=== PATIENT | female | born 1950 | race Caucasian/White ===

== ENCOUNTER 2022-01-23 15:53 | Observation (INO) ==
[2022-01-23 17:02] LABS: Bilirubin,Urine Small (Negative); Blood,Urine Small (Negative); Clarity,Urine Clear (Clear); Color,Urine Yellow (Yellow); Glucose,Urine (UA) Normal (Normal); Hyaline Casts,Urine Few per lpf (None Seen); Ketones,Urine 150 mg/dL (Negative); Leukocyte Esterase,Urine Negative (Negative); Mucus,Urine Few per lpf (None-Few); Nitrite,Urine Negative (Negative); Protein,Urine 50 mg/dL (Neg-Trace); RBC,Urine 0-3 per hpf (0-3); Specific Gravity,Urine 1.029 (1.010-1.025); Squamous Epithelial Cell,Urine Few per hpf (None-Few); WBC,Urine 0-3 per hpf (0-3)
[2022-01-23 17:15] LABS: Basophils # 0.1 K/mcL (0.0-0.2); Basophils % 0.4 %; Eosinophils % 0.2 %; Hematocrit 43.1 % (35.3-44.9); Hemoglobin 14.9 g/dL (11.5-15.4); Immature Granulocytes % 0.4 % (0-4); Lymphocytes # 1.7 K/mcL (0.6-4.6); Lymphocytes % 14.6 %; Mean Corpuscular HGB Conc 34.6 g/dL (31.6-35.5); Mean Corpuscular Hemoglobin 31.5 pg (28.0-33.3); Mean Corpuscular Volume 91.1 fL (83.0-100.0); Mean Platelet Volume 8.4 fL (9.4-12.4); Monocytes # 0.7 K/mcL (0.0-1.3); Monocytes % 6.3 %; Platelet Count 255 K/mcL (140-400); Red Blood Count 4.73 M/mcL (3.82-4.97); Red Cell Distribution Width 12.5 % (11.5-14.5); Segmented Neutrophils % 78.1 %; White Blood Count 11.5 K/mcL (4.3-11.1)
[2022-01-23 17:25] LABS: Albumin 4.7 g/dL (3.5-5.7); Albumin/Globulin Ratio 1.8 (1.1-2.2); Bilirubin,Direct 0.2 mg/dL (0.0-0.2); Bilirubin,Indirect 0.6 mg/dL (0.0-1.0); Bilirubin,Total 0.8 mg/dL (0.3-1.0); Calcium 10.4 mg/dL (8.6-10.3); Globulin 2.6 g/dL (2.4-3.5); Potassium 3.8 mEq/L (3.5-5.1); Total Protein 7.3 g/dL (6.4-8.9)
[2022-01-23] MEDS ORDERED: Isovue-370 500 ML BOTTLE IVP ONE (19:24)
[2022-01-23] MEDS ORDERED: 0.9 % Sodium Chloride 1,000 ML IV ONE (19:24)
[2022-01-23] MEDS ORDERED: *HR* FentaNYL (PF) 100 MCG/2 ML VIAL IVP ONE (19:24)
[2022-01-23] MEDS ORDERED: Ondansetron 4 MG/2 ML VIAL IVP ONE (19:24)
[2022-01-23 20:49] LABS: VBG HCO3 17 mEq/L (21-27); VBG PCO2 28 mmHg (41-51); VBG PO2 74 mmHg (25-50)
[2022-01-24] MEDS ORDERED: Acetaminophen 325 MG TABLET PO PRN (00:21)
[2022-01-24] MEDS ORDERED: Ondansetron 4 MG/2 ML VIAL IVP PRN (00:21)
[2022-01-24] MEDS ORDERED: Naloxone 0.4 MG/ML INJ IVP PRN (00:21)
[2022-01-24] MEDS ORDERED: Melatonin 3 MG TABLET PO PRN (00:21)
[2022-01-24] MEDS ORDERED: D5% in Water 1,000 ML IVC PRN (00:26)
[2022-01-24] MEDS ORDERED: Dextrose 4 GM Chewable Tablets PO PRN ×2 (00:26)
[2022-01-24] MEDS ORDERED: *HR* Dextrose 50 % in Water (Syg) 50 ML SYRINGE IVP PRN (00:26)
[2022-01-24] MEDS ORDERED: 0.9 % Sodium Chloride 1,000 ML IVC SCH (00:30)
[2022-01-24] MEDS: Piperacillin/Tazobactam 3.375 GM in 0.9 % Sodium Chloride Mini Bag 100 ML IVP ONE ×2 (01:08→01:19)
[2022-01-24 01:21] LABS: Basophils % 0.3 %; Eosinophils % 0.1 %; Hematocrit 36.4 % (35.3-44.9); Immature Granulocytes % 0.4 % (0-4); Lymphocytes # 2.1 K/mcL (0.6-4.6); Lymphocytes % 17.8 %; Mean Corpuscular HGB Conc 34.6 g/dL (31.6-35.5); Mean Corpuscular Hemoglobin 31.6 pg (28.0-33.3); Mean Corpuscular Volume 91.2 fL (83.0-100.0); Mean Platelet Volume 8.5 fL (9.4-12.4); Monocytes # 0.7 K/mcL (0.0-1.3); Monocytes % 6.4 %; Neutrophils # 8.7 K/mcL (1.6-8.9); Platelet Count 217 K/mcL (140-400); Red Blood Count 3.99 M/mcL (3.82-4.97); Red Cell Distribution Width 12.5 % (11.5-14.5); White Blood Count 11.6 K/mcL (4.3-11.1)
[2022-01-24 01:24] LABS: Hemoglobin 12.6 g/dL (11.5-15.4)
[2022-01-24 01:30] LABS: Prothrombin Time 11.1 Seconds (9.4-12.1)
[2022-01-24 01:32] LABS: Activated Partial Thrombo Time 27.5 Seconds (26.0-36.0)
[2022-01-24 01:45] LABS: Albumin/Globulin Ratio 1.7 (1.1-2.2); Bilirubin,Total 0.7 mg/dL (0.3-1.0); Calcium 9.1 mg/dL (8.6-10.3); Chol/HDL Ratio 2.1 (0-4.9); Globulin 2.3 g/dL (2.4-3.5); Magnesium 1.9 mg/dL (1.6-2.6); Phosphorous 3.2 mg/dL (2.7-4.5); Potassium 3.8 mEq/L (3.5-5.1); Total Protein 6.3 g/dL (6.4-8.9)
[2022-01-24 06:29] VITALS: BP 160/86; PULSE 69; TEMP 98.1; O2SAT 100
[2022-01-24] MEDS ORDERED: *HR* OxyCODONE/APAP 5/325 TABLET PO PRN (06:33)
[2022-01-24 07:32] LABS: Thyroid Stimulating Hormone 0.428 mcIU/mL (0.340-5.600)
[2022-01-24] MEDS ORDERED: Lactobacillus 1 EACH CAP.SPRINK PO SCH (09:00)
[2022-01-24] MEDS ORDERED: Piperacillin/Tazobactam 3.375 GM in 0.9 % Sodium Chloride Mini Bag 100 ML IVPB SCH (09:00)
[2022-01-24] MEDS ORDERED: *HR* Heparin 5,000 UNIT/ML VIAL SQ SCH (14:00)
== END 2022-01-24 12:30 | disposition home or self-care (01) ==
LOC: 3BNU 15:53 → EMEROOARM 15:53 → SUATTDRO 23:52 → 3BNU 01-24 00:28
PROVIDERS: ADMIT Internal Medicine; ATTEND Internal Medicine